=== PATIENT | female | born 1995 | race Caucasian/White ===

== ENCOUNTER 2021-04-17 18:27 | Emergency (ER) | payer MEDICAID ==
[2021-04-17] MEDS ORDERED: Amoxicillin 500 MG Cap ONE (19:07)
--- NOTE | 2021-04-17 19:27 | EDM.PDOC ---
ED HPI GENERAL MEDICAL PROBLEM - General Chief Complaint: Back Pain or Injury Stated Complaint: kidney pain Time Seen by Provider: 04/17/21 19:05 Source of Information: Reports: Patient History Limitations: Reports: No Limitations - History of Present Illness INITIAL COMMENTS - FREE TEXT/NARRATIVE: Sweetie is a 25 year old female who presents to ER with back pain. States had UTI symptoms earlier in the day with frequency and burning with urination. That has improved but this evening is now having kidney pain. Denies any fevers. No nausea or vomiting. Is 13 weeks gestation with twins. Has had previous OB visit in [place] with good ultrasound. has otherwise been uneventful. Denies any vaginal bleeding. . No chest pain, shortness of breath. No diarrhea or constipation issues. Onset: Today, Gradual Duration: Hour(s):, Getting Worse Location: Reports: Back Quality: Reports: Ache Severity: Moderate Improves with: Reports: None Associated Symptoms: Reports: Malaise. Denies: Confusion, Chest Pain, Cough, Fever/Chills, Loss of Appetite, Nausea/Vomiting, Shortness of Breath Lower Back Pain Score (Numeric/FACES): 7 - Related Data Allergies Allergy/AdvReac Type Severity Reaction Status Date / Time bee pollen Allergy Anaphylactic Verified 04/17/21 18:30 Shock codeine Allergy Anaphylactic Verified 04/17/21 18:30 Shock iodine Allergy Anaphylactic Verified 04/17/21 18:30 Shock Latex, Natural Rubber Allergy Anaphylactic Verified 04/17/21 18:30 Shock shellfish derived Allergy Anaphylactic Verified 04/17/21 18:30 Shock Home Meds: Home Meds Aspirin 81 mg PO DAILY 04/17/21 [History] Famotidine [Pepcid] 10 mg PO DAILY 04/17/21 [History] Folic Acid 1 mg PO DAILY 04/17/21 [History] Iron 18 mg PO DAILY 04/17/21 [History] Pnv No.103/Folic/Om3s/Fish Oil [ Gummies] 1 each PO DAILY 04/17/21 [History] ondansetron HCL [Zofran] 4 mg PO DAILY 04/17/21 [History] Past Medical History HEENT History: Reports: None Cardiovascular History: Reports: None Respiratory History: Reports: None Gastrointestinal History: Reports: None Genitourinary History: Reports: None Other [employer] History: ovarion cyst removal Musculoskeletal History: Reports: None Neurological History: Reports: None Psychiatric History: Reports: None Endocrine/Metabolic History: Reports: None Hematologic History: Reports: None Immunologic History: Reports: None Oncologic (Cancer) History: Reports: None Dermatologic History: Reports: None - Infectious Disease History Infectious Disease History: Reports: None - Past Surgical History Head Surgeries/Procedures: Reports: None Cardiovascular Surgical History: Reports: None GI Surgical History: Reports: None Female Surgical History: Reports: None Neurological Surgical History: Reports: None Musculoskeletal Surgical History: Reports: None Social & Family History - Family History Family Medical History: No Pertinent Family History - Tobacco Use Tobacco Use Status *Q: Current Every Day Tobacco User Years of Tobacco use: 6 Packs/Tins Daily: 1 - Caffeine Use Caffeine Use: Reports: Coffee, Soda - Recreational Drug Use Recreational Drug Use: No ED ROS GENERAL - Review of Systems Review Of Systems: See Below Constitutional: Reports: Malaise. Denies: Fever, Chills, Weakness, Fatigue, Decreased Appetite HEENT: Reports: No Symptoms Respiratory: Denies: Shortness of Breath, Cough Cardiovascular: Denies: Chest Pain, Edema, Lightheadedness Endocrine: Denies: Fatigue GI/Abdominal: Denies: Abdominal Pain, Nausea, Vomiting : Reports: Flank Pain, Frequency Musculoskeletal: Reports: Back Pain Skin: Reports: No Symptoms Neurological: Reports: No Symptoms ED EXAM, RENAL/ - Physical Exam Exam: See Below Exam Limited By: No Limitations General Appearance: Alert, WD/WN, No Apparent Distress Head: Normocephalic Neck: Normal Inspection, Supple, Non-Tender Respiratory/Chest: No Respiratory Distress, Lungs Clear, Normal Breath Sounds Cardiovascular: Regular Rate, Rhythm GI/Abdominal: Normal Bowel Sounds, Soft, Non-Tender Back Exam: CVA Tenderness (L), CVA Tenderness (R) Extremities: Normal Inspection, No Pedal Edema Neurological: Alert, Oriented Skin Exam: Warm, Dry Course - Vital Signs Last Recorded V/S: Last Vital Signs Temp 97.6 F 04/17/21 18:34 Pulse 101 H 04/17/21 18:34 Resp 18 04/17/21 18:34 BP 137/77 04/17/21 18:34 Pulse Ox 97 04/17/21 18:34 - Orders/Labs/Meds Orders: Active Orders 24 hr Category Date Time Status CULTURE URINE [RM] Stat Lab 04/17/21 19:14 Received Labs: Laboratory Tests 04/17/21 Range/Units 18:59 Urine Color Yellow (YELLOW) Urine Appearance Cloudy (CLEAR) Urine pH 5.5 (4.5-8.0) Ur Specific [place] >= 1.030 H (1.003-1.020) Urine Protein 100 H (NEGATIVE) mg/dL Urine Glucose (UA) Negative (NEGATIVE) mg/dL Urine Ketones Trace H (NEGATIVE) mg/dL Urine Occult Blood Large H (NEGATIVE) Urine Nitrite Positive H (NEGATIVE) Urine Bilirubin Negative (NEGATIVE) Urine Urobilinogen 1.0 (0.2-1.0) EU/dL Ur Leukocyte Esterase Moderate H (NEGATIVE) Urine RBC 5-10 H (0-5) /HPF Urine WBC >100 H (0-5) /HPF Ur Epithelial Cells Few H (NOT SEEN) /HPF Calcium Oxalate Crystal Moderate H (NOT SEEN) /HPF Urine Bacteria Many H (NOT SEEN) /HPF Meds: Medications Discontinued Medications Generic Name Dose Route Start Last Admin Trade Name Jose PRN Reason Stop Dose Admin Amoxicillin 1 packet 04/17/21 19:22 04/17/21 19:43 Take Home: Amoxicillin 500 Mg Cap, 2 Cap Pack PO 04/17/21 19:23 1 packet ONETIME ONE Administration - Re-Assessments/Exams Free Text/Narrative Re-Assessment/Exam: 04/17/21 Abdomen is soft, nontender. FHTs evaluated, able to detect one notable twin with heart tones at 140. REassured that likely just able to hear one due to gestation at this point. Patient relates that were unable to hear 2 with doppler but did have good ultrasound with fraternal twins noted. Departure - Departure Time of Disposition: 19:25 Disposition: Home, Self-Care 01 Condition: Good Clinical Impression: UTI (urinary tract infection) in in first trimester - Discharge Information *PRESCRIPTION DRUG MONITORING PROGRAM REVIEWED*: No *COPY OF PRESCRIPTION DRUG MONITORING REPORT IN PATIENT ELYSSA: No Instructions: Urinary Tract Infection, Adult Referrals: PCP,None [Primary Care Provider] - Forms: ED Department Discharge Additional Instructions: 1. Push fluids 2. Tylenol for discomfort 3. Amoxicillin 500 mg tonight and in am then switch to 875 mg twice a day for 10 days 4. Follow up with OB doctor for any further concerns. Sepsis Event Note (ED) - Evaluation Sepsis Screening Result: No Definite Risk - Focused Exam Vital Signs: Vital Signs Temp Pulse Resp BP Pulse Ox 04/17/21 18:34 97.6 F 101 H 18 137/77 97 - My Orders Last 24 Hours: My Active Orders 04/17/21 19:14 CULTURE URINE [RM] Stat - Assessment/Plan Last 24 Hours: My Active Orders 04/17/21 19:14 CULTURE URINE [RM] Stat
[2021-04-17] MEDS: Take Home: Amoxicillin 500 MG Cap, 2 Cap Pack PO ONE (19:43)
== END 2021-04-17 19:30 | disposition home or self-care (01) ==
LOC: CC.ED 18:27
DX: O23.41 Unspecified infection of urinary tract in pregnancy, first trimester (principal); Z88.5 Allergy status to narcotic agent; Z91.030 Bee allergy status; Z91.040 Latex allergy status; Z91.013 Allergy to seafood; Z91.041 Radiographic dye allergy status; Z79.82 Long term (current) use of aspirin; Z72.0 Tobacco use; Z3A.13 13 weeks gestation of pregnancy
CPT/HCPCS: 81001; 87086; 87088; 87186; 99284-25; A9270-GY

== ENCOUNTER 2022-01-17 23:13 | Emergency (ER) | payer MEDICAID ==
[2022-01-17] MEDS ORDERED: Albuterol/Ipratropium 3.0-0.5 MG/3 ML Neb Soln NEB ONE (23:14)
[2022-01-17] MEDS ORDERED: Albuterol 8 GM Inhaler INH PRN (23:30)
== END 2022-01-17 23:45 | disposition home or self-care (01) ==
LOC: CC.ED 23:13
DX: J45.909 Unspecified asthma, uncomplicated (principal); Z88.5 Allergy status to narcotic agent; Z91.040 Latex allergy status; Z91.030 Bee allergy status; Z91.041 Radiographic dye allergy status; Z79.82 Long term (current) use of aspirin; Z91.013 Allergy to seafood
CPT/HCPCS: 94640; 99284; A9270-GY; J7620-GY

== ENCOUNTER 2022-01-19 20:43 | Emergency (ER) | payer MEDICAID | END 2022-01-19 23:00 | disposition home or self-care (01) | LOC: CC.ED 20:43 | DX: S00.81XA Abrasion of other part of head, initial encounter (principal); Z88.5 Allergy status to narcotic agent; Z91.030 Bee allergy status; Z91.041 Radiographic dye allergy status; Z91.040 Latex allergy status; Z91.013 Allergy to seafood; W18.09XA Striking against other object with subsequent fall, initial encounter | CPT/HCPCS: 70450; 72125; 99284; 99284-25 ==